=== PATIENT | female | born 1980 | race Caucasian/White ===

== ENCOUNTER 2018-02-27 14:21 | Emergency (ER) | payer SELFPAY ==
[~2018-02-27] VITALS: Ht 172.7 cm; Wt 78.6 kg
[~2018-02-27 14:21] MED LIST: PNV#1COM9 PO
[2018-02-27 14:32] VITALS: BP 113/69
== END 2018-02-27 16:36 | disposition home or self-care (01) ==
LOC: ED 16:00
DX: S82.441A Displaced spiral fracture of shaft of right fibula, initial encounter for closed fracture (principal); G89.11 Acute pain due to trauma; X50.1XXA Overexertion from prolonged static or awkward postures, initial encounter; Y93.89 Activity, other specified; Y92.830 Public park as the place of occurrence of the external cause; Y99.8 Other external cause status
CPT/HCPCS: 29515; 99284

== ENCOUNTER 2018-03-04 06:46 | Day surgery (SDC) | payer SELFPAY ==
[~2018-03-04] VITALS: Ht 172.7 cm; Wt 78.2 kg
[2018-03-04] MEDS ORDERED: LACTATED RINGERS 1,000 ML IV SCH (07:15)
[2018-03-04] MEDS ORDERED: MIDAZOLAM 1 MG/ML, 2ML ONE (07:20)
[2018-03-04] MEDS ORDERED: FENTANYL PF 100 MCG/2ML ONE ×2 (07:20→09:42)
[2018-03-04] MEDS ORDERED: PROPOFOL 50 ML ONE (07:26)
[2018-03-04] MEDS ORDERED: OxyconTIN ER 10 MG TAB.ER PO ONE (07:30)
[2018-03-04] MEDS ORDERED: FAMOTIDINE 20 MG TABLET PO ONE (07:30)
[2018-03-04] MEDS ORDERED: SCOPOLAMINE PATCH, 1.5MG PATCH.TD72 TD ONE (07:30)
[2018-03-04] MEDS ORDERED: ACETAMINOPHEN 500 MG TABLET PO ONE (07:30)
[2018-03-04] MEDS ORDERED: GABAPENTIN 300 MG CAPSULE PO ONE (07:30)
[2018-03-04 07:41] LABS: HCG UR SG 1.021 (1.003-1.030)
[2018-03-04 07:45] VITALS: BP 117/80
[2018-03-04] MEDS ORDERED: ACET-1600 PO (07:52)
[2018-03-04] MEDS ORDERED: PROPOFOL 10 MG/ML, 50ML ONE (08:56)
[2018-03-04] MEDS ORDERED: KETOROLAC 30 MG/1 ML ONE (08:56)
[2018-03-04] MEDS ORDERED: DEXAMETHASONE 4 MG/ML, 5ML ONE (08:56)
[2018-03-04] MEDS ORDERED: CEFAZOLIN 1,000 MG ONE (08:56)
[2018-03-04] MEDS ORDERED: ONDANSETRON ODT 8 MG PO PRN (09:30)
[2018-03-04] MEDS ORDERED: MORPHINE SULFATE 4 MG/ML, 1ML IVPush PRN (09:30)
[2018-03-04] MEDS ORDERED: MEPERIDINE/PF 25MG/0.5ML IVPush PRN (09:30)
[2018-03-04] MEDS ORDERED: OXYcodone 5 MG/5 ML ORAL.SOL UDC PO PRN (09:30)
[2018-03-04] MEDS ORDERED: PROMETHAZINE 25 MG/ML, 1ML IV PRN (09:30)
[2018-03-04] MEDS: FENTANYL PF 100 MCG/2ML IV PRN ×2 (09:44→09:52)
[2018-03-04] MEDS ORDERED: MORPHINE SULFATE 4 MG/ML, 1ML ONE (10:02)
[2018-03-04] MEDS ORDERED: OXYcodone 5 MG/5 ML ORAL.SOL UDC ONE (10:17)
== END 2018-03-04 11:35 ==
LOC: OUT 06:46
PROVIDERS: ATTEND Orthopaedic Surgery
DX: S82.61XA Displaced fracture of lateral malleolus of right fibula, initial encounter for closed fracture (principal); W19.XXXA Unspecified fall, initial encounter; Y93.89 Activity, other specified; Y92.89 Other specified places as the place of occurrence of the external cause; Y99.8 Other external cause status
CPT/HCPCS: 27792; 73600; 76000; 81025; C1713; J0690; J1100; J1885; J2250; J2704; J3010; J7120

== ENCOUNTER 2019-04-18 05:29 | Emergency (ER) | payer SELFPAY ==
[~2019-04-18] VITALS: Ht 172.7 cm; Wt 81.2 kg
[~2019-04-18 05:29] MED LIST changes: +ACET-1600 PO
--- NOTE | 2019-04-18 05:49 | NUR ---
Assessment made. ERP at bedside. patient states she woke up from sleep having sudden sharp left sided chest pain with SOB.
[2019-04-18] MEDS ORDERED: DIAZEPAM 5 MG TABLET PO ONE (06:00)
[2019-04-18] MEDS ORDERED: DIAZEPAM 5 MG TABLET ONE (06:01)
--- NOTE | 2019-04-18 06:05 | NUR ---
Xray done. patient medicated.
--- NOTE | 2019-04-18 06:55 | NUR ---
OBTAINED REPORT, CARE OF PT ASSUMED.
--- NOTE | 2019-04-18 06:57 | NUR ---
patient states feeling better now. chart up for MD to re-eval.
[2019-04-18 07:00] VITALS: BP 122/81
--- NOTE | 2019-04-18 07:07 | NUR ---
report to Ghanshyam RN's
--- NOTE | 2019-04-18 07:25 | NUR ---
PT STATES THAT ALL HER SYMPTOMS ARE RESOLVED - DENIES CH. PAIN OR SOB. PT STATES "I FEEL READY TO GO HOME". VSS. NAD. ALL DC INSTRUCTIONS EXPLAINED AND PT VERBALIZED UNDERSTANDING. PT STEADY ON FEET AND IN STABLE CONDITION.
== END 2019-04-18 07:40 | disposition home or self-care (01) ==
LOC: ED 06:57
DX: R07.89 Other chest pain (principal); F41.1 Generalized anxiety disorder
CPT/HCPCS: 71045; 93005; 99283

== ENCOUNTER 2019-10-30 00:47 | Emergency (ER) | payer MEDICAID ==
[~2019-10-30] VITALS: Ht 172.7 cm; Wt 77.9 kg
[2019-10-30] MEDS ORDERED: ASPIRIN 81 MG TABLET CHEW PO ONE (01:30)
[2019-10-30 01:32] LABS: BASOPHILS # (AUTO) 0.02 x10^3/uL (0-0.1); BASOPHILS % (AUTO) 0 % (0-1); EOSINOPHILS % (AUTO) 1 % (1-7); LYMPHOCYTES # (AUTO) 0.98 x10^3/uL (1-3.4); LYMPHOCYTES % (AUTO) 14 % (22-44); MD NO; MEAN CORPUSCULAR HEMOGLOBIN 34.8 pg (27.0-34.8); MEAN CORPUSCULAR VOLUME 102.3 fL (80-100); MEAN PLATELET VOLUME 8.4 fL (7.4-10.4); MONOCYTES # (AUTO) 0.53 x10^3/uL (0.2-0.8); MONOCYTES % (AUTO) 7 % (2-9); NEUTROPHILS % (AUTO) 77 % (42-75); PLATELET COUNT 252 x10^3/uL (130-400); RED BLOOD COUNT 4.32 x10^6/uL (3.82-5.3); RED CELL DISTRIBUTION WIDTH 12.3 % (9.6-15.2)
[2019-10-30 01:39] LABS: ALANINE AMINOTRANSFERASE 108 U/L (12-78); ALBUMIN 3.7 g/dL (3.4-5.0); ANION GAP 8 mmol/L (5-15); CALCIUM 8.7 mg/dL (8.5-10.1); CHLORIDE 104 mmol/L (98-107); CREATININE 0.74 mg/dL (0.55-1.02)
[2019-10-30 01:44] LABS: ALKALINE PHOSPHATASE 77 U/L (45-117); BILIRUBIN,TOTAL 1.1 mg/dL (0.2-1.0); TOTAL PROTEIN 7.5 g/dL (6.4-8.2); TROPONIN I < 0.015 ng/mL (0.000-0.045)
[2019-10-30] MEDS ORDERED: ASPIRIN 81 MG TABLET CHEW ONE (01:49)
[2019-10-30 02:02] LABS: FREE T4 (FREE THYROXINE) 1.33 ng/dL (0.76-1.46)
[2019-10-30 02:43] VITALS: BP 119/78
== END 2019-10-30 02:45 | disposition home or self-care (01) ==
LOC: ED 02:13
DX: R06.00 Dyspnea, unspecified (principal)
CPT/HCPCS: 36415; 71046; 80053; 83880; 84439; 84443; 84484; 85025; 93005; 99284